=== PATIENT | female | born 1965 | race Caucasian/White ===

== ENCOUNTER 2023-01-03 15:16 | Outpatient (CLI) | payer OTHER, SELFPAY ==
--- NOTE | 2023-01-03 15:20 | CRLHL7_ITS ---
For Patients: As a result of the Century Cures Act, medical imaging exams and procedure reports are released immediately into your electronic medical record. You may view this report before your referring provider. If you have questions, please contact your health care provider. BILATERAL SCREENING MAMMOGRAM WITH COMPUTER-AIDED DETECTION AND TOMOSYNTHESIS TECHNIQUE: CC and MLO views were obtained. These mammographic images have been obtained using full-field digital technique. These mammographic images were interpreted with the benefit of computer-aided detection. Breast tomosynthesis was used in this interpretation. COMPARISON FILM: 05/18/16, 06/18/13, 07/30/11. FINDINGS: The breasts are heterogeneously dense, which may obscure small masses. IMPRESSION: There is no radiographic evidence for malignancy. ASSESSMENT: BI-RADS Category 1: Negative RECOMMENDATION: Routine screening mammogram in 1 year. A lay language report of this examination will be provided to the patient. SURESH WALSH M.D. Diagnostic Radiologist [email or web address] Transcribed: 01/04/2023, 3:[address]/Dictated by: Suresh Walsh MD @ 01/04/2023 9:43:00 AM (Electronically Signed)
== END 2023-01-03 15:17 | disposition home or self-care (01) ==
LOC: MAMMO 15:16
PROVIDERS: PCP Internal Medicine; Visit Provider Internal Medicine
DX: Z12.31 Encounter for screening mammogram for malignant neoplasm of breast (principal); R92.2 Inconclusive mammogram
CPT/HCPCS: 77063; 77067

== ENCOUNTER 2023-01-04 08:30 | Outpatient (RCR) | payer OTHER, SELFPAY ==
--- NOTE | 2022-12-05 12:22 | OT.OPODN ---
OT Outpatient Ortho Daily Note OT Outpatient Ortho Daily Note* Start: 11/05/22 12:40 Freq: Status: Active Protocol: Document 12/05/22 12:11 LCN (Rec: 12/05/22 12:21 LCN [id number]) E-signed By Vira Munoz, OTR/L, CLT Type of Note Type of Note Type of Note Daily Note Visit Number 7 Insurance Information Insurance Information [facility] Out[facility] History/Precautions Current Condition/Medical Diagnosis Referring Provider Rhina Plummer PA-C Treatment Diagnosis Left middle finger closed avulsion w volar plate injury Date of Onset 09/04/22 Other Conditions Also suffered L foot 5th MT fracture in her injru, in CAM boot and now at full weightbearing, no assistive device Medical/Functional History Medical History Reviewed Yes: Very healthy Prior Level of Function/Mobility Pt lives in a historic multi level home with her locally, son also lives with them. 2 other grown children Social History Current Occupation Lot Technician at [employer] Critical Job Demands Prolonged Standing Other Critical Job Demands small object manipulation dissection in lab Hobbies gardening Fitness home yoga practice, SUP, biking, lifting weights. Ortho Subjective Subjective Subjective Pt is able to make flat fist actively. MIddle finger feels stiff/tight each morning. Was able to help move light furniture w . Walking 6.5 miles /day w CAM boot off. Donna Cheatham is an active 57 y/ female who feel over a large shoe in her entry way, fracturing L MTP of Left foot ( currently in CAM boomt ) and also sustined closed volar plate injury avulsion fracture of L middle finger, on 09/04/22. Xray 10/17/22, showing good signs of healing, released from aluminum gutter splint at that time and referred to OT for careful progression of ROM, strengthening to support two handed home/work, fitness tasks. Pain Assessment Pain Present Pain Present Pain Reported Location L Middle finger, RF Description Tightness,Pressure,Dull, Achy, Throbbing,With Movement, Heaviness Intensity 2 OT OP Daily Ortho Note/Assessment Therapeutic Exercise Therapeutic Exercise Minutes (minutes) 9 Therapeutic Exercise Comments Added resistance gripper ( bands x 15# vs spring loaded dial with incentive counter and gel egg kit). Trial of 10 reps with both devices. Manual Therapy Manual Therapy Minutes (minutes) 20 Manual Therapy Comments LLPS at MCP, PIP, DIP in composite, isolated planes after IASTM of dorsal lateral bands for L RF/SF. Most stiff at DIP RF, and PIP for MF. Total Occupational Therapy Time Occupational Therapy Minutes 29 Home Program Home Program Home Program Revised,Compliant Home Program Specifics 12/05/22-- rubber band resistance gripper 15# vs 6 kg spring gripper. 11/23/22-- poke and push, pull w yellow putty 11/20/22-- Putty industrial safety and health technician/2pt alternating, rhodes 11/12/22 hook and roll down AAROM 11/05/22-- Added compression glove, towel scrunch closed chain digit flexion glides, fist rolling to aide MCP to PIP flexion with light proprioception. Range of Motion and Strength Wrist Range of Motion and Strength Wrist Range of Motion and Strength SH , EL ROM WNL. L WR EX is stiff to 45 of 70 dgrees, FL to 90, UD to 45, RD to 10 ( pulling at ulnar side of wrist, TFCC stable. Fovea pressure (-, no pain). Hand/Finger/Thumb Range of Motion and Strength Hand/Finger/Thumb Range of Motion and 12/05/22--Composite digit Strength flexion for MF to .7 AAROM and .5 cm RF. Middle finger PIP to 100 of 110 flexion AAROM. Has some tendon lag for active , improves with resistance training. 11/27/22-- Composite digit flexion for MF to 1.3 AAROM and .5 cm RF 11/23/22-- Composite digit flexion for MF to 1.3 AAROM and 1.8 cm AROM. 11/20/22--Composite digit flexion for MF to 1.3 AAROM and 2.5 cm AROM ( from 3.1 cm at the start of session); RF to .3 at end of session. 11/16/22-- Composite digit flexion for MF to 1.3; RF to . 3 at end of session ( .7 cm at the start) 11/12/22--Composite digit flexion for MF to 1.7 RF to 1. 7 at end of session ( 2.5 cm at the start) from eval-- L IF WNL. Composite digit flexion for IF/MF/RF/SF is .3/ 6.7 / 3.5 / 2.7 cm L MF MCP to 90/pip 15-65 of 110. DIP to 25. L RF MCP to 90, PIP 90 / DIP 25 per digit edema. Hand Pinch/Cyber Instructor Strength Hand Left Cyber Instructor Strength Position 1 (lbs) 37 Lateral Pinch Strength (lbs) 18 Three Point Pinch (lbs) 11 Right Cyber Instructor Strength Position 1 (lbs) 70 Lateral Pinch Strength (lbs) 22 Three Point Pinch (lbs) 18 OT Objective Data Skin/Wounds/Edema Comments 11/20/22 skin color noramlizing , still larger around PIP, but all other skin areas with improved color, temperature and skin mobility. Eval--Digit shafts have mild pinkish sheen with light waxy appearance, thicker nail beds than usual. Digits MF/RF/SF are distended with edema, web space measures 17.7 L, 17.4 cm R. Sensation Sensation Assessment Summary Comments No changes. OT Problems Problems Problems Decreased Strength,Decreased Range of Motion,Pain,Lifting, Gripping,Pinching Other Problems Opening Containers,Dressing, Computer,Fasteners Patient Potential Excellent Assessment Assessment Assessment Great progress. Anticipate 2-3 more visits to cont working on Language123 to match AROM and intrinsic hand strength. Donna is a very healthy woman who currently struggles with L hand MF/RF/SF edema, pain pressure, ROM loss and weakness impacting her ability to complete 2 handed ADL/IADL , teaching and fitness tasks. She would benefit from skilled OT to address these areas. Occupational Therapy Treatment Plan - OP Potential Rehabilitation Potential Excellent Set Goals Goals Set with Patient Yes Goals Goals Donna will demonstrate-- 1) full AROM of fist closure, in hand manipulation of L hand for gardening and teaching hands on biology lab study 2) improved weightbearing into palms/plank, industrial safety and health technician to 40# and 3 pt pinch to 15 # without pn in L MF to support dressing, fitness tasks 3) I HEP for stretching, edema management, strengthening. Treatment Plan Treatment Plan Evaluation,Edema Control,Joint Mobilization,Manual Therapy, Therapeutic Exercise,Self Care /Home Management,Education Expected Frequency 1-2x Week Expected Duration 8-10 Weeks Occupational Therapy Billing Units Treatment Minutes Timed Treatment Minutes 29 Total Treatment Minutes 29 Billing Units Manual Therapy 1 Therapeutic Exercise 1
== END 2023-01-28 14:46 | disposition home or self-care (01) ==
PROVIDERS: PCP Physician Assistant; Visit Provider Physician Assistant Surgical
DX: S92.355A Nondisplaced fracture of fifth metatarsal bone, left foot, initial encounter for closed fracture (principal); S62.629A Displaced fracture of middle phalanx of unspecified finger, initial encounter for closed fracture; Z51.89 Encounter for other specified aftercare
CPT/HCPCS: 97110; 97112; 97140; 97161; 97165; 97535; X5282

== ENCOUNTER 2023-11-27 08:15 | Outpatient (CLI) | payer OTHER, SELFPAY | END 2023-11-27 08:16 | disposition home or self-care (01) | LOC: NFLDREF 12-01 10:49 | PROVIDERS: PCP Internal Medicine; Referring Provider Internal Medicine; Visit Provider Internal Medicine | DX: E78.5 Hyperlipidemia, unspecified (principal) | CPT/HCPCS: 80061 ==

== ENCOUNTER 2024-04-30 08:03 | Outpatient (CLI) | payer OTHER, SELFPAY ==
--- OUTSIDE RECORDS SUMMARY | 2024-04-30 08:06 | XMS_ITS | Clinical Summary ---
Author Organization [facility] Address [place], [place] [address] Care Team Providers Care Silverware Etcher Name Role Phone Clinic, [facility] Primary [facility] Pr ovider Allergies Active Allergy Reactions Criticality Noted Date Comments Penicillins Rash 10/31/2006 had reaction as a child ??has taken amox since then without a problem Medications Medication Sig Dispensed Refills Start Date End Date Status ZITHROMAX 250 MG TABIndications:Strepto coccal sore throat take 2 tablets (500mg) by oral route once daily for 1 day then 1 tablet (250mg) by oral route once daily for 4 days 6 0 10/31/2006 Active Active Problems No known active problems Immunizations Name Administration Dates Next Due Influenza, IIV3 (Age >=3 years) 04/24/2006 Td (Age >=7 Years) 12/22/2004 Family History Medical History Relation Name Comments Good Health Father Good Health Mother Relation Name Status Comments Father Alive Mother Alive Social History Tobacco Use Types Packs/Day Years Used Date Smoking Tobacco: Never Smokeless Tobacco: Never Tobacco Cessation:Counseling Given: Not Answered Alcohol Use Standard Drinks/Week Comments Not Asked 0 (1 standard drink = 0.6 oz pur e alcohol) Social Connections Answer Date Recorded Frequency of Communication with Friends and Fami ly Not on file 09/05/2022 Sex and Gender Information Value Date Recorded Sex Assigned at Not on file Gender Identity Not on file Sexual Orientation Not on file Obstetrics History Last Filed Vital Signs Vital Sign Reading Time Taken Comments Blood Pressure 125/82 09/05/2022 10:44 AM CDT Pulse 69 09/05/2022 10:44 AM CDT Temperature 37 ??C (98.6 ??F) 10/31/2006 2:31 PM CDT Respiratory Rate - - Oxygen Saturation 97% 09/05/2022 10:44 AM CDT Inhaled Oxygen Concentration - - Weight 71.8 kg (158 lb 6.4 oz) 09/05/2022 10:44 AM CDT Height - - Body Mass Index - - Plan of Treatment Health Maintenance Due Date Last Done Comments Tdap 1974 Depression screening for age 12+ 1975 HIV for age 15-65 1978 BMI (ht and wt on same day) for age 18+ 1981 Hepatitis C screening for age 18-79 1981 Pap test for age 21-65 1984 Colonoscopy through age 75 2008 Lipids for age 45-75 2008 Mammogram for age 45-75 2008 Zoster (shingles) series for age 50+ (1 of 2) 2013 Tetanus booster 12/22/2014 12/22/2004 COVID-19 vaccine series ( season) 2024 04/06/2022, 05/23/2021, 10/18/2020, Additional history exists Influenza for age 50-64 02/23/2024 04/24/2006 Pneumococcal series for age 6-64 Aged Out No longer eligible based on patient's age to complete this topic Care Teams Silverware Etcher Relationship Specialty Start Date End Date Clinic, [facility] [address] [place] [address] PCP - General 02/03/24
--- NOTE | 2024-04-30 08:15 | CRLHL7_ITS ---
For Patients: As a result of the Century Cures Act, medical imaging exams and procedure reports are released immediately into your electronic medical record. You may view this report before your referring provider. If you have questions, please contact your health care provider. BILATERAL SCREENING MAMMOGRAM WITH COMPUTER-AIDED DETECTION AND TOMOSYNTHESIS TECHNIQUE: CC and MLO views were obtained. These mammographic images have been obtained using full-field digital technique. These mammographic images were interpreted with the benefit of computer-aided detection. Breast tomosynthesis was used in this interpretation. COMPARISON FILM: 01/03/23, 05/18/16, 06/18/13. FINDINGS: The breasts are heterogeneously dense, which may obscure small masses. IMPRESSION: There is no radiographic evidence for malignancy. ASSESSMENT: BI-RADS Category 1: Negative RECOMMENDATION: Routine screening mammogram in 1 year. A lay language report of this examination will be provided to the patient. SURESH WALSH M.D. Diagnostic Radiologist [email or web address] Transcribed: 05/07/2024, 4:[address]/Dictated by: Suresh Walsh MD @ 05/07/2024 9:08:00 AM (Electronically Signed)
== END 2024-04-30 08:04 | disposition home or self-care (01) ==
LOC: MAMMO 08:04
PROVIDERS: PCP Internal Medicine; Visit Provider Internal Medicine
DX: Z12.31 Encounter for screening mammogram for malignant neoplasm of breast (principal); R92.333 Mammographic heterogeneous density, bilateral breasts
CPT/HCPCS: 77063; 77067

== ENCOUNTER 2025-04-01 07:35 | Outpatient (CLI) | payer BC, SELFPAY | END 2025-04-01 07:36 | disposition home or self-care (01) | LOC: NFLDREF 23:46 | PROVIDERS: PCP Internal Medicine; Referring Provider Internal Medicine; Visit Provider Internal Medicine | DX: E78.5 Hyperlipidemia, unspecified (principal) | CPT/HCPCS: 80061 ==

== ENCOUNTER 2025-05-04 15:48 | Outpatient (CLI) | payer BC, SELFPAY ==
--- NOTE | 2025-05-04 16:00 | CRLHL7_ITS ---
For Patients: As a result of the Century Cures Act, medical imaging exams and procedure reports are released immediately into your electronic medical record. You may view this report before your referring provider. If you have questions, please contact your health care provider. INDICATION: BILATERAL SCREENING MAMMOGRAM, ASYMPTOMATIC 59 Y/O FEMALE COMPARISON: 04/30/2024, 01/03/2023, 05/18/2016 TECHNIQUE: Digital mammogram in CC and MLO projections including computer-aided detection (CAD) and tomosynthesis. BREAST COMPOSITION: The breasts are heterogeneously dense, which may obscure small masses. FINDINGS: No suspicious findings. ASSESSMENT: BI-RADS 1 Negative RECOMMENDATION: Annual screening mammogram. A lay language report of this examination will be provided to the patient. Dictated by: Suresh Craig MD @ 05/05/2025 09:13:07 (Electronically Signed)
== END 2025-05-04 15:49 | disposition home or self-care (01) ==
LOC: MAMMO 15:48
PROVIDERS: PCP Internal Medicine; Visit Provider Internal Medicine
DX: Z12.31 Encounter for screening mammogram for malignant neoplasm of breast (principal); R92.333 Mammographic heterogeneous density, bilateral breasts
CPT/HCPCS: 77063; 77067